=== PATIENT | female | born 1980 ===

== ENCOUNTER → 2018-02-05 | Outpatient (CLI) | payer OTHER ==
[~2018-02-05] VITALS: Ht 154.9 cm; Wt 93.0 kg
== END | disposition home or self-care (01) ==
LOC: OFIC 805 08:55
DX: H93.11 Tinnitus, right ear (principal); J30.89 Other allergic rhinitis; R09.81 Nasal congestion

== ENCOUNTER 2025-05-18 09:36 | Outpatient (CLI) | payer OTHER ==
[2025-05-18 11:07] LABS: URINE APPEARANCE Clear; URINE BILIRRUBIN Negative (NEGATIVE); URINE BLOOD Small; URINE COLOR Yellow; URINE GLUCOSE Negative (NEGATIVE); URINE KETONE Negative (NEGATIVE); URINE LEUKOCYTE Trace; URINE NITRATE Positive; URINE PROTEIN Negative (NEGATIVE); URINE UROBILINOGEN 0.2 E.U./dl
[2025-05-18 11:14] LABS: URINE CAST 1.90 uL (0.0-1.40); URINE EPITHELIAL CELLS 12.6 uL (0.0-38.8); URINE RBC 2.1 uL (0.0-20.8); URINE WBC 43.2 uL (0.0-23.2)
[2025-05-18 11:17] LABS: BASO % 0.8 % (0.1-1.2); EOS # 0.13 (0.04-0.54); EOS % 1.3 % (0.7-7.0); LYMPH # 2.87 (1.18-3.74); LYMPH % 29.4 % (19.3-53.1); MEAN PLATELET VOLUME 9.80 fl (9.4-12.4); MONO # 0.72 (0.24-0.82); MONO % 7.4 % (4.7-12.5); NEUT # 5.93 (1.56-6.13); NEUT % 60.9 % (34.0-71.1); RED CELL DISTRIBUTION WIDTH 16.0 % (11.6-14.4)
[2025-05-18 11:28] LABS: URINE BACTERIA > 9821.5 uL (0.0-1933)
[2025-05-18 12:27] LABS: ALT/SGPT 25.0 U/L (12-78); AST/SGOT 12.0 U/L (15-37); BILIRUBIN TOTAL 0.23 mg/dL (0.3-1.2); BUN CREA RATIO 16.0 (7.0-25.0); CREATININE SERUM 0.88 mg/dL (0.55-1.02); GFR 70.13; GLOBULINA 3.5 G/DL (2.4-3.5); GLUCOSE FASTING 130.0 mg/dL (65-100); OSMOLALITY SERUM 291.0 MOSM/KG (275-295)
[2025-05-18 12:52] LABS: INR 0.95
== END 2025-05-18 09:46 | disposition home or self-care (01) ==
LOC: LAB 09:36
PROVIDERS: ATTEND Obstetrics & Gynecology
DX: I10 Essential (primary) hypertension (principal); Z01.818 Encounter for other preprocedural examination; N92.0 Excessive and frequent menstruation with regular cycle; D50.0 Iron deficiency anemia secondary to blood loss (chronic); Z01.812 Encounter for preprocedural laboratory examination

== ENCOUNTER 2025-05-28 11:00 | Day surgery (SDC) | payer OTHER ==
[~2025-05-28 11:00] MED LIST: MAXFE CAPLET1 EAC1 PO; METFORMIN HCL500 M3 PO; SINGULAIR10 MG PO; ZYRTEC10 MG PO
[2025-05-28] MEDS ORDERED: CEFAZOLIN SODIUM 1,000 MG VIAL ONE (12:34)
[2025-05-28] MEDS ORDERED: POVIDONE-IODINE 118 ML BOTT TOP ONE ×2 (15:04→16:26)
== END 2025-05-28 20:30 | disposition home or self-care (01) ==
LOC: CIR.AMB 11:00
PROVIDERS: ATTEND Obstetrics & Gynecology
DX: N92.0 Excessive and frequent menstruation with regular cycle (principal)